=== PATIENT | female | born 1950 | race Caucasian/White ===

== ENCOUNTER 2016-09-30 21:14 | Emergency (ER) | payer MEDICARE ==
--- NOTE | ~2016-09-30 | ER ---
PATIENT'S NAME: [facility] AGE: 65 Y [address] ROOM: [place] [address] LOCATION: ED ADMIT DATE: 09/30/2016 ER/Outpatient Report DISCHARGE DATE: 09/30/2016 FAMILY PHYSICIAN: NABIL MULLINS (NACO) ATTENDING PHYSICIAN: Robbie Reed CHIEF COMPLAINT: Weakness. HISTORY OF PRESENT ILLNESS: The patient states that yesterday afternoon immediately after dialysis she began to have numbness in all of her extremities. It initially improved throughout the day yesterday and then worsened again throughout the day today. Upon returning from work, her did bring her in this evening for evaluation. She states that it is difficult to walk because she feels like she cannot really feel her legs. She denies any other symptoms including vision changes, headache, ear pain, neck pain, sore throat, chest pain, abdominal pain or discomfort, or new rashes anywhere. She states that she had been constipated earlier in the week, started taking MiraLAX; and since then, has had significant diarrhea. This is not completely uncommon for her and she has had this in the past. She denies any other infectious signs or symptoms and has had no vomiting. She does state that she does have some diminished sensation in her feet, but otherwise has no other acute issues. PAST MEDICAL HISTORY: Documented on the record and reviewed by me. SOCIAL HISTORY: Documented on the record and reviewed by me. MEDICATIONS: Documented on the record and reviewed by me. ALLERGIES: DOCUMENTED ON THE RECORD AND REVIEWED BY ME. REVIEW OF SYSTEMS: Review of systems was performed and negative except as noted in the HPI. PHYSICAL EXAMINATION: VITAL SIGNS: Blood pressure 114/54, pulse 71, respiratory rate is 20, temp 100.4, and SpO2 is 90% on room air. GENERAL: Age-appropriate female, tired appearance, no obvious pain or distress. NEURO: The patient is awake and alert. GCS is 15. She has no dysarthria or PATIENT'S NAME: [facility] AGE: 65 Y [address] ROOM: [place] [address] LOCATION: ED ADMIT DATE: 09/30/2016 ER/Outpatient Report DISCHARGE DATE: 09/30/2016 FAMILY PHYSICIAN: NABIL MULLINS (NACO) ATTENDING PHYSICIAN: Robbie Reed facial asymmetry. She has symmetric strength in all extremities. She has a very mild dysmetria at the extremes of range of the upper extremities, right equal to left. She is able to perform past 40 appropriately otherwise. She is able to do [id number] without difficulty. She is able to stand with minimal assistance and is able to walk. Her gait is deliberate, but without any gross abnormalities otherwise. She endorses diminished sensation from the midshin distally and I was unable to identify any sensory deficits in the upper extremities. HEENT: Normocephalic, atraumatic. Eyes are PERRL. Oropharynx is clear. NECK: Supple. Trachea is midline. CHEST: Heart is regular rate and rhythm with no murmurs. LUNGS: Clear to auscultation bilaterally with no rhonchi, wheezes, or rales. ABDOMEN: Soft, nontender, and nondistended. No rebound or guarding. BACK: Nontender to palpation throughout. No CVA tenderness. EXTREMITIES: Warm and well-perfused with no obvious abnormalities other than decreased sensation in the feet bilaterally. SKIN: Warm, dry, and intact. No areas of breakdown, erythema, abscesses, or fluctuance appreciated. LABS AND X-RAYS: Chest x-ray was unremarkable per my read. WBC is 14.2, hemoglobin 10.8, and platelets of 91. INR is 1.0. Sodium is 134, potassium 4.2, chloride is 94, CO2 is 27, BUN is 46, creatinine is 6.5, AST and ALT are 13 respectively, GFR is 6, amylase and lipase 46 and 130 respectively, CRP is 22.4. Procalcitonin is 3.9, free T4 is 1.0, TSH is 1.39. Blood gas, pH 7.48, pCO2 is 40, pO2 is 53, HC03 29.8, FiO2 is room air. Lactate is 2.1. Serum ketones are negative. IMPRESSION: 1. Peripheral neuropathy with metabolic alkalosis and elevated inflammatory markers. 2. Diarrhea, possibly infectious. EMERGENCY DEPARTMENT COURSE: The patient was seen and evaluated as above. No clear source of her pain. She denies any urinary symptoms when she does urinate. She has no obvious source of infection. I cannot clearly explain her elevated inflammatory markers. I am concerned that she may have some infectious diarrhea that could possibly explain her current presentation. She has no major metabolic disturbances with a very mild metabolic alkalosis. At this time, she remains hemodynamically stable. We are able to ambulate her to the restroom without any significant difficulties. She appears to be improving. I spoke at length with the patient and her . They are amenable to close followup tomorrow with primary care versus dialysis depending on how things go. With the patient having no reported improvement over the last 24 hours plus since symptom onset, I do not think that she will likely decompensate tonight. I PATIENT'S NAME: BALDEMAR [facility] AGE: 65 Y [address] ROOM: [place] [address] LOCATION: [facility] ADMIT DATE: 09/30/2016 ER/Outpatient Report DISCHARGE DATE: 09/30/2016 FAMILY PHYSICIAN: NABIL MULLINS (NA[place]) ATTENDING PHYSICIAN: Robbie Reed have explained at length that they should return immediately if there is any new symptoms or changes that are concerning. All questions were answered and the patient was discharged in good condition. MD SHIRA ROLLE/andrew /[id number] d: 10/01/16 0343 t: 10/13/16 0825, OUTPATIENT REPORT
[~2016-09-30 21:14] MED LIST: AMARYL4 MG PO; CALCIUM ACETAT667 MG PO; COREG25 MG PO; HUMALOG100 UNIT/3 SUB-Q; LANTUS SOL100 UNIT/1 SUB-Q; LOSARTAN POTASS50 MG PO; NEURONTIN100 MG PO; NORCO 5-325 TA1 EACH; PHOSLO667 MG PO; PLAVIX75 MG PO; REQUIP2 MG PO; TORSEMIDE100 MG PO; TRADJENTA5 MG PO; VITAMIN D-32000 UNI1 PO
[2016-09-30 21:59] LABS: BASOPHIL # 0.1 K/uL (0.0-0.2); BASOPHIL % 0.4 %; EOSINOPHIL % 0.3 %; HEMATOCRIT 33.7 % (33.0-46.0); HEMOGLOBIN 10.8 g/dL (10.0-15.0); IMMATURE GRANULOCYTE # 0.1 K/uL (0.0-0.3); IMMATURE GRANULOCYTE % 0.5 %; LYMPHOCYTE # 1.7 K/uL (0.8-4.0); LYMPHOCYTE % 11.8 %; MCH 28.9 pg (27.0-34.0); MCV 90.1 fl (83.0-98.0); MONOCYTE # 0.8 K/uL (0.0-1.0); MONOCYTE % 5.6 %; MPV 9.9 fl (9.4-12.4); NEUTROPHIL # (ANC) 11.6 K/uL (1.8-7.8); NEUTROPHIL % 81.4 %; NRBC % 0 /100WBC (0-0.00); RBC 3.74 M/uL (3.50-5.50); RDW-CV 18.2 % (11.9-14.6); WBC 14.2 K/uL (4.0-11.0)
[2016-09-30 22:01] LABS: PLATELET COUNT 91 K/uL (150-450)
[2016-09-30 22:06] LABS: BICARBONATE 29.8 mmol/L (18.0-23.0); LACTATE 2.1 mEq/L (0.50-1.60); PCO2 40 mmHg (35-45); PO2 53 mmHg (80-90)
[2016-09-30 22:18] LABS: ALBUMIN 3.2 gm/dL (3.5-5.0); ANION GAP 17.2 (10.0-19.0); POTASSIUM 4.2 mMol/L (3.7-5.1); TOTAL BILIRUBIN 0.6 mg/dL (0.0-1.5); TOTAL PROTEIN 8.1 g/dL (6.0-8.4)
[2016-09-30 22:34] LABS: CREATININE 6.5 mg/dL (0.5-1.1)
[2016-09-30 22:50] LABS: PTT 29 SECONDS (25-32)
== END 2016-09-30 23:20 | disposition disaster alternative care site (69) ==
LOC: GMED 21:14
PROVIDERS: Emergency Medicine
DX: G62.9 Polyneuropathy, unspecified (principal); E87.3 Alkalosis; R19.7 Diarrhea, unspecified